=== PATIENT | female | born 1940 | race Caucasian/White ===

== ENCOUNTER 2018-08-30 19:13 | Emergency (ER) | payer MEDICARE, OTHER ==
[~2018-08-30] VITALS: Ht 154.9 cm; Wt 55.0 kg
[2018-08-30 21:57] LABS: BASOPHILS % (AUTO) 2.1 % (0.0-2.0); EOSINOPHILS % (AUTO) 2.8 % (1.0-6.0); HEMATOCRIT 26.5 % (36-46); HEMOGLOBIN 8.5 g/dL (12.0-16.0); LYMPHOCYTES # (AUTO) 1.4 K/uL (1.0-4.8); LYMPHOCYTES % (AUTO) 14.5 % (22.0-44.0); MEAN CORPUSCULAR HEMOGLOBIN 24.4 pg (26.0-34.0); MEAN CORPUSCULAR HGB CONC 32.1 G/dL (31.0-37.0); MEAN CORPUSCULAR VOLUME 76 fL (80-100); MONOCYTES # (AUTO) 0.8 K/uL (0.1-1.0); MONOCYTES % (AUTO) 8.3 % (2.0-9.0); NEUTROPHILS # (AUTO) 7.2 K/uL (1.8-7.7); NEUTROPHILS % (AUTO) 72.3 % (40.0-70.0); PLATELET COUNT (AUTO) 363 K/uL (150-450); RED BLOOD CELL COUNT(AUTO) 3.48 MIL/uL (4.00-5.20); RED CELL DISTRIBUTION WIDTH 19.1 % (11.5-14.5)
[2018-08-30 22:08] LABS: ALANINE AMINOTRANSFERASE 21 U/L (12-78); ALBUMIN 3.8 g/dL (3.4-5.0); ALKALINE PHOSPHATASE 73 U/L (46-116); ANION GAP 10 mmol/L (8-16); ASPARTATE AMINOTRANSFERASE 21 U/L (15-37); BILIRUBIN,TOTAL 0.2 mg/dL (0.1-1.0); CARBON DIOXIDE 26 mmol/L (22-29); CHLORIDE 103 mmol/L (98-107); CREATININE 1.02 mg/dL (0.60-1.30); GLUCOSE,RANDOM 111 mg/dL (70-110); POTASSIUM 4.2 mmol/L (3.5-5.1); SODIUM SERUM 139 mmol/L (136-145); TOTAL PROTEIN, SERUM 7.8 g/dL (6.4-8.2)
[2018-08-30 22:31] LABS: AMPHET/METH SCREEN,URINE NEGATIVE (NEGATIVE); BARBITURATE SCREEN, URINE NEGATIVE (NEGATIVE); BENZODIAZEPINES SCREEN,URINE POSITIVE (NEGATIVE); CANNABINOID SCREEN,URINE NEGATIVE (NEGATIVE); COCAINE SCREEN,URINE NEGATIVE (NEGATIVE); METHADONE SCREEN, URINE NEGATIVE (NEGATIVE); OPIATE SCREEN,URINE NEGATIVE (NEGATIVE)
[2018-08-30 22:33] LABS: PHENCYCLIDINE SCREEN,URINE NEGATIVE (NEGATIVE)
[2018-08-30 22:35] LABS: GLOMERULAR FILTR. RATE CALC 55 mL/min (>60); UREA NITROGEN, BLOOD 40 mg/dL (7-18)
[2018-08-31 00:14] VITALS: BP 155/78
== END 2018-08-31 00:16 | disposition home or self-care (01) ==
LOC: EMS 19:14
DX: F32.9 Major depressive disorder, single episode, unspecified (principal); E78.00 Pure hypercholesterolemia, unspecified; Z88.0 Allergy status to penicillin
CPT/HCPCS: 36415; 80053; 80307; 85025; 99285; G0480

== ENCOUNTER 2019-04-23 21:30 | Emergency (ER) | payer MEDICARE, OTHER ==
[~2019-04-23] VITALS: Ht 160 cm; Wt 54.5 kg
[2019-04-23] MEDS ORDERED: [UNRECOGNIZED DRUG - CODE] ITH (22:02)
[2019-04-23] MEDS ORDERED: ENTE0.5T4 PO (22:02)
[2019-04-23] MEDS ORDERED: [UNRECOGNIZED DRUG - CODE] PO (22:02)
[2019-04-23] MEDS ORDERED: LOSA25TA2 PO (22:02)
[2019-04-23] MEDS ORDERED: AMLO-387 PO (22:02)
[2019-04-23] MEDS ORDERED: LIDOCAINE 1% 10 ML VIAL INJ ONE (23:45)
[2019-04-24] MEDS ORDERED: KETOROLAC TROMETHAMINE 60 MG/2 ML VIAL IM ONE (00:30)
[2019-04-24] MEDS ORDERED: LORazepam 1 MG TABLET PO ONE (00:30)
[2019-04-24] MEDS ORDERED: MethylPREDNISolone SOD SUCC 125 MG/2 ML VIAL IM ONE (04:00)
[2019-04-24 04:19] VITALS: BP 121/65
== END 2019-04-24 04:25 | disposition home or self-care (01) ==
LOC: EMS 21:31
DX: M62.838 Other muscle spasm (principal); M54.2 Cervicalgia; I10 Essential (primary) hypertension; E78.00 Pure hypercholesterolemia, unspecified; Z88.0 Allergy status to penicillin
CPT/HCPCS: 20550; 96372; 99284; J1885; J2930; J3490

== ENCOUNTER 2019-08-17 20:34 | Emergency (ER) | payer MEDICARE, OTHER ==
[~2019-08-17] VITALS: Ht 154.9 cm; Wt 50.0 kg
[~2019-08-17 20:34] MED LIST: AMLO-387 PO; ENTE0.5T4 PO; LOSA25TA2 PO; [UNRECOGNIZED DRUG - CODE] ITH; [UNRECOGNIZED DRUG - CODE] PO
[2019-08-17 21:06] VITALS: BP 161/100
[2019-08-17] MEDS ORDERED: NAPROXEN 250 MG TABLET PO ONE (23:30)
[2019-08-17] MEDS ORDERED: TiZANidine HCL 4 MG TABLET PO ONE (23:30)
== END 2019-08-18 00:36 | disposition home or self-care (01) ==
LOC: EMS 20:35
DX: M54.2 Cervicalgia (principal); M62.838 Other muscle spasm; I10 Essential (primary) hypertension; E78.00 Pure hypercholesterolemia, unspecified; Z88.0 Allergy status to penicillin

== ENCOUNTER 2019-08-18 07:20 | Emergency (ER) | payer MEDICARE, OTHER ==
[~2019-08-18] VITALS: Ht 154.9 cm; Wt 50.0 kg
[2019-08-18] MEDS ORDERED: IBUPROFEN 600 MG TABLET PO ONE (08:30)
[2019-08-18 08:32] VITALS: BP 178/80
== END 2019-08-18 08:30 | disposition home or self-care (01) ==
LOC: EMS 07:22
DX: M62.838 Other muscle spasm (principal); F41.9 Anxiety disorder, unspecified; E78.00 Pure hypercholesterolemia, unspecified; I10 Essential (primary) hypertension; Z79.899 Other long term (current) drug therapy; Z88.0 Allergy status to penicillin

== ENCOUNTER 2020-11-07 11:34 | Inpatient (IN) | payer MEDICARE, MEDICAID ==
[~2020-11-07] VITALS: Ht 152.4 cm; Wt 53.4 kg
[~2020-11-07 11:34] MED LIST changes: -[UNRECOGNIZED DRUG - CODE] ITH
[2020-11-07] MEDS ORDERED: ACETAMINOPHEN 500 MG TABLET PO ONE (13:15)
[2020-11-07] MEDS ORDERED: ZOLPIDEM TARTRATE 10 MG TABLET PO PRN (15:30)
[2020-11-07] MEDS ORDERED: HALOPERIDOL 5 MG TABLET PO PRN (15:30)
[2020-11-07] MEDS ORDERED: LORazepam 2 MG TABLET PO PRN (15:30)
[2020-11-07 19:14] LABS: COVID AG,FIA SOURCE NASOPHARYNGEAL
[2020-11-08] MEDS ORDERED: PNEUMOCOCCAL VACCINE POLYVALENT 0.5 ML VIAL [PPSV23] IM. ONE (02:30)
[2020-11-08 04:28] VITALS: BP 103/65
[2020-11-08 07:50] LABS: CHOL/HDL RATIO 3.7 (3.9-5.7)
[2020-11-08 08:11] VITALS: BP 118/60
[2020-11-08] MEDS ORDERED: ALBUTEROL SULFATE HFA 90 MCG/PUFF 8 GM INHALER IH PRN (08:30)
[2020-11-08] MEDS ORDERED: MAGNESIUM HYDROXIDE SUSPENSION 30 ML UDCUP PO PRN (08:30)
[2020-11-08] MEDS ORDERED: LOPERAMIDE HCL 2 MG CAPSULE PO PRN (08:30)
[2020-11-08] MEDS ORDERED: PETROLATUM,WHITE 28 GM JELLY TP PRN (08:30)
[2020-11-08] MEDS ORDERED: DOCUSATE SODIUM 100 MG CAPSULE PO PRN (08:30)
[2020-11-08] MEDS ORDERED: CloNIDine HCL 0.1 MG TABLET PO PRN (08:30)
[2020-11-08] MEDS ORDERED: ONDANSETRON HCL 4 MG TABLET PO PRN (08:30)
[2020-11-08] MEDS ORDERED: NICOTINE 14 MG/24 HOUR PATCH TD PRN (08:30)
[2020-11-08] MEDS ORDERED: GuaiFENesin/D-METHORPHAN [SUGAR-FREE] 200-20MG/10 ML SYRUP UDCUP PO PRN (08:30)
[2020-11-08] MEDS ORDERED: MAG HYDROX/AL HYDROX/SIMETH ES 30 ML SUSPENSION UDCUP PO PRN (08:30)
[2020-11-08] MEDS: LOSARTAN POTASSIUM 25 MG TABLET PO SCH ×2 (08:48→17:14)
[2020-11-08] MEDS: AmLODIPine BESYLATE 5 MG TABLET PO SCH (08:48)
[2020-11-08] MEDS: ATORVASTATIN CALCIUM 10 MG TABLET PO SCH (08:48)
[2020-11-08] MEDS: CALAMINE/ZINC OXIDE 177 ML LOTION TP SCH ×2 (08:49→17:14)
[2020-11-08 09:00] VITALS: BP 118/60
[2020-11-08 16:05] VITALS: BP 142/83
[2020-11-08] MEDS: ACETAMINOPHEN 325 MG TABLET PO PRN (17:31)
[2020-11-08] MEDS: IBUPROFEN 400 MG TABLET PO PRN (19:00)
[2020-11-08] MEDS: RisperiDONE 2 MG TABLET PO SCH (20:08)
[2020-11-09 04:17] VITALS: BP 128/60
[2020-11-09] MEDS: ENTECAVIR 0.5 MG PO SCH (06:02)
[2020-11-09 08:05] VITALS: BP 113/53
[2020-11-09] MEDS: MULTIVITAMINS WITH MINERALS, THERAPEUTIC TABLET PO SCH (09:17)
[2020-11-09] MEDS: CALAMINE/ZINC OXIDE 177 ML LOTION TP SCH ×2 (09:17→17:00)
[2020-11-09] MEDS: ATORVASTATIN CALCIUM 10 MG TABLET PO SCH (09:21)
[2020-11-09 10:25] VITALS: BP 148/68
[2020-11-09] MEDS: LOSARTAN POTASSIUM 25 MG TABLET PO SCH ×2 (10:48→17:00)
[2020-11-09] MEDS: AmLODIPine BESYLATE 5 MG TABLET PO SCH (10:48)
[2020-11-09 12:15] VITALS: BP 133/68
[2020-11-09] MEDS: RisperiDONE 2 MG TABLET PO SCH (21:00)
[2020-11-10 05:00] VITALS: BP 156/73
[2020-11-10] MEDS: ENTECAVIR 0.5 MG PO SCH (06:26)
[2020-11-10 07:00] VITALS: BP 158/86
[2020-11-10 08:06] VITALS: BP 149/93
[2020-11-10] MEDS: AmLODIPine BESYLATE 5 MG TABLET PO SCH (08:08)
[2020-11-10] MEDS: ATORVASTATIN CALCIUM 10 MG TABLET PO SCH (08:08)
[2020-11-10] MEDS: LOSARTAN POTASSIUM 25 MG TABLET PO SCH ×2 (08:08→17:13)
[2020-11-10] MEDS: MULTIVITAMINS WITH MINERALS, THERAPEUTIC TABLET PO SCH (08:09)
[2020-11-10] MEDS: CALAMINE/ZINC OXIDE 177 ML LOTION TP SCH ×2 (08:09→16:27)
[2020-11-10 16:08] VITALS: BP 126/53
[2020-11-11 00:08] VITALS: BP 130/64
[2020-11-11] MEDS: ENTECAVIR 0.5 MG PO SCH (06:22)
[2020-11-11 07:00] VITALS: BP 124/61
[2020-11-11] MEDS: IBUPROFEN 400 MG TABLET PO PRN (07:10)
[2020-11-11 08:04] VITALS: BP 127/61
[2020-11-11] MEDS: MULTIVITAMINS WITH MINERALS, THERAPEUTIC TABLET PO SCH (08:24)
[2020-11-11] MEDS: CALAMINE/ZINC OXIDE 177 ML LOTION TP SCH ×2 (08:25→16:25)
[2020-11-11] MEDS: ATORVASTATIN CALCIUM 10 MG TABLET PO SCH (08:25)
[2020-11-11] MEDS: LOSARTAN POTASSIUM 25 MG TABLET PO SCH ×2 (08:25→17:00)
[2020-11-11] MEDS: AmLODIPine BESYLATE 5 MG TABLET PO SCH (08:25)
[2020-11-11] MEDS ORDERED: RisperiDONE 1 MG TABLET PO SCH (09:00)
[2020-11-11] MEDS: ACETAMINOPHEN 325 MG TABLET PO PRN (13:53)
[2020-11-11 17:26] VITALS: BP 97/60
[2020-11-11 20:28] VITALS: BP 102/61
[2020-11-11] MEDS: RisperiDONE 2 MG TABLET PO SCH (20:30)
[2020-11-12] VITALS: BP 104/52
[2020-11-12 02:14] VITALS: BP 114/62
[2020-11-12] MEDS: IBUPROFEN 400 MG TABLET PO PRN (02:22)
[2020-11-12] MEDS: ENTECAVIR 0.5 MG PO SCH (06:01)
[2020-11-12 07:42] LABS: COVID AG,FIA SOURCE NASOPHARYNGEAL
[2020-11-12 08:14] VITALS: BP 113/67
[2020-11-12] MEDS: LOSARTAN POTASSIUM 25 MG TABLET PO SCH ×2 (08:33→15:59)
[2020-11-12] MEDS: RisperiDONE 2 MG TABLET PO SCH ×2 (08:33→15:59)
[2020-11-12] MEDS: ATORVASTATIN CALCIUM 10 MG TABLET PO SCH (08:34)
[2020-11-12] MEDS: AmLODIPine BESYLATE 5 MG TABLET PO SCH (08:34)
[2020-11-12] MEDS: MULTIVITAMINS WITH MINERALS, THERAPEUTIC TABLET PO SCH (08:34)
[2020-11-12] MEDS: CALAMINE/ZINC OXIDE 177 ML LOTION TP SCH ×2 (09:24→16:08)
[2020-11-12 16:06] VITALS: BP 110/70
[2020-11-13] VITALS: BP 118/52
[2020-11-13 06:20] VITALS: BP 115/63
[2020-11-13] MEDS: ACETAMINOPHEN 325 MG TABLET PO PRN (06:23)
[2020-11-13] MEDS: ENTECAVIR 0.5 MG PO SCH (07:02)
[2020-11-13 08:02] VITALS: BP 109/66
[2020-11-13] MEDS: ATORVASTATIN CALCIUM 10 MG TABLET PO SCH (08:05)
[2020-11-13] MEDS: RisperiDONE 2 MG TABLET PO SCH ×2 (08:05→16:31)
[2020-11-13] MEDS: MULTIVITAMINS WITH MINERALS, THERAPEUTIC TABLET PO SCH (08:05)
[2020-11-13] MEDS: LOSARTAN POTASSIUM 25 MG TABLET PO SCH ×2 (08:06→16:31)
[2020-11-13] MEDS: CALAMINE/ZINC OXIDE 177 ML LOTION TP SCH ×2 (08:06→16:31)
[2020-11-13] MEDS: AmLODIPine BESYLATE 5 MG TABLET PO SCH (09:37)
[2020-11-13 16:13] VITALS: BP 130/70
[2020-11-14 00:02] VITALS: BP 122/59
[2020-11-14] MEDS: ENTECAVIR 0.5 MG PO SCH (06:49)
[2020-11-14] MEDS: ACETAMINOPHEN 325 MG TABLET PO PRN (06:53)
[2020-11-14 07:55] LABS: BASOPHILS % (AUTO) 0.6 % (0.0-2.0); EOSINOPHILS % (AUTO) 6.5 % (1.0-6.0); HEMOGLOBIN 10.7 g/dL (12.0-16.0); LYMPHOCYTES % (AUTO) 12.3 % (22.0-44.0); MEAN CORPUSCULAR HEMOGLOBIN 28.4 pg (26.0-34.0); MEAN CORPUSCULAR HGB CONC 32.4 G/dL (31.0-37.0); MEAN CORPUSCULAR VOLUME 88 fL (80-100); MONOCYTES # (AUTO) 0.7 K/uL (0.1-1.0); MONOCYTES % (AUTO) 8.8 % (2.0-9.0); NEUTROPHILS # (AUTO) 5.6 K/uL (1.8-7.7); NEUTROPHILS % (AUTO) 71.8 % (40.0-70.0); PLATELET COUNT (AUTO) 226 K/uL (150-450); RED BLOOD CELL COUNT(AUTO) 3.76 MIL/uL (4.00-5.20); RED CELL DISTRIBUTION WIDTH 14.7 % (11.5-14.5)
[2020-11-14 07:59] LABS: HEMOGLOBIN A1C 6.3 % (3.8-5.6)
[2020-11-14 08:09] VITALS: BP 133/60
[2020-11-14 08:13] LABS: ALBUMIN 3.4 g/dL (3.4-5.0); BILIRUBIN,TOTAL 0.3 mg/dL (0.1-1.0); CREATININE 0.93 mg/dL (0.60-1.30); FREE T4 (FREE THYROXINE) 1.1 ng/dL (0.76-1.46); POTASSIUM 4.7 mmol/L (3.5-5.1); THYROID STIMULATING HORMONE 0.26 uIU/mL (0.36-3.74); TOTAL PROTEIN, SERUM 7.2 g/dL (6.4-8.2)
[2020-11-14] MEDS: ATORVASTATIN CALCIUM 10 MG TABLET PO SCH (08:14)
[2020-11-14] MEDS: MULTIVITAMINS WITH MINERALS, THERAPEUTIC TABLET PO SCH (08:14)
[2020-11-14] MEDS: LOSARTAN POTASSIUM 25 MG TABLET PO SCH ×2 (08:14→16:05)
[2020-11-14] MEDS: RisperiDONE 2 MG TABLET PO SCH ×2 (08:14→16:05)
[2020-11-14] MEDS: CALAMINE/ZINC OXIDE 177 ML LOTION TP SCH ×2 (09:10→16:05)
[2020-11-14] MEDS: AmLODIPine BESYLATE 5 MG TABLET PO SCH (09:10)
[2020-11-14 16:20] VITALS: BP 110/58
[2020-11-14] MEDS: IBUPROFEN 400 MG TABLET PO PRN (19:40)
[2020-11-15 05:26] VITALS: BP 116/62
[2020-11-15] MEDS: ENTECAVIR 0.5 MG PO SCH (06:03)
[2020-11-15] MEDS: IBUPROFEN 400 MG TABLET PO PRN (06:40)
[2020-11-15] MEDS: LOSARTAN POTASSIUM 25 MG TABLET PO SCH ×2 (09:21→16:30)
[2020-11-15] MEDS: RisperiDONE 2 MG TABLET PO SCH ×2 (09:22→16:30)
[2020-11-15] MEDS: AmLODIPine BESYLATE 5 MG TABLET PO SCH (09:22)
[2020-11-15] MEDS: MULTIVITAMINS WITH MINERALS, THERAPEUTIC TABLET PO SCH (09:22)
[2020-11-15] MEDS: CALAMINE/ZINC OXIDE 177 ML LOTION TP SCH ×2 (09:22→16:34)
[2020-11-15] MEDS: ATORVASTATIN CALCIUM 10 MG TABLET PO SCH (09:22)
[2020-11-15 09:32] VITALS: BP 133/66
[2020-11-15] MEDS: SERTRALINE HCL 50 MG TABLET PO SCH (13:15)
[2020-11-15] MEDS: ACETAMINOPHEN 325 MG TABLET PO PRN (13:16)
[2020-11-15 16:25] VITALS: BP 131/60
[2020-11-16 06:12] VITALS: BP 122/59
[2020-11-16] MEDS: ENTECAVIR 0.5 MG PO SCH (06:52)
[2020-11-16 08:12] VITALS: BP 127/57
[2020-11-16] MEDS: ATORVASTATIN CALCIUM 10 MG TABLET PO SCH (08:24)
[2020-11-16] MEDS: SERTRALINE HCL 50 MG TABLET PO SCH (08:24)
[2020-11-16] MEDS: MULTIVITAMINS WITH MINERALS, THERAPEUTIC TABLET PO SCH (08:24)
[2020-11-16] MEDS: AmLODIPine BESYLATE 5 MG TABLET PO SCH (08:25)
[2020-11-16] MEDS: LOSARTAN POTASSIUM 25 MG TABLET PO SCH ×2 (08:26→16:30)
[2020-11-16] MEDS: CALAMINE/ZINC OXIDE 177 ML LOTION TP SCH ×2 (08:27→16:35)
[2020-11-16] MEDS: RisperiDONE 2 MG TABLET PO SCH ×2 (08:27→16:30)
[2020-11-16] MEDS: IBUPROFEN 400 MG TABLET PO PRN (14:02)
[2020-11-16 16:01] VITALS: BP 110/64
[2020-11-16] MEDS: ACETAMINOPHEN 325 MG TABLET PO PRN (16:33)
[2020-11-17 02:50] VITALS: BP 153/67
[2020-11-17] MEDS: IBUPROFEN 400 MG TABLET PO PRN ×2 (02:57→12:00)
[2020-11-17] MEDS: ENTECAVIR 0.5 MG PO SCH (06:06)
[2020-11-17] MEDS: LOSARTAN POTASSIUM 25 MG TABLET PO SCH ×2 (08:01→16:32)
[2020-11-17] MEDS: SERTRALINE HCL 50 MG TABLET PO SCH (08:01)
[2020-11-17] MEDS: MULTIVITAMINS WITH MINERALS, THERAPEUTIC TABLET PO SCH (08:01)
[2020-11-17] MEDS: ATORVASTATIN CALCIUM 10 MG TABLET PO SCH (08:01)
[2020-11-17] MEDS: RisperiDONE 2 MG TABLET PO SCH ×2 (08:01→16:32)
[2020-11-17] MEDS: CALAMINE/ZINC OXIDE 177 ML LOTION TP SCH ×2 (08:06→16:32)
[2020-11-17] MEDS: AmLODIPine BESYLATE 5 MG TABLET PO SCH (08:26)
[2020-11-17 08:31] VITALS: BP 132/64
[2020-11-17] MEDS: ACETAMINOPHEN 325 MG TABLET PO PRN (16:08)
[2020-11-17 16:12] VITALS: BP 126/61
[2020-11-18 05:39] VITALS: BP 122/73
[2020-11-18] MEDS: ENTECAVIR 0.5 MG PO SCH (06:07)
[2020-11-18] MEDS: MULTIVITAMINS WITH MINERALS, THERAPEUTIC TABLET PO SCH (08:14)
[2020-11-18] MEDS: AmLODIPine BESYLATE 5 MG TABLET PO SCH (08:14)
[2020-11-18] MEDS: RisperiDONE 2 MG TABLET PO SCH ×2 (08:14→17:26)
[2020-11-18] MEDS: SERTRALINE HCL 50 MG TABLET PO SCH (08:14)
[2020-11-18] MEDS: LOSARTAN POTASSIUM 25 MG TABLET PO SCH ×2 (08:14→17:27)
[2020-11-18] MEDS: ATORVASTATIN CALCIUM 10 MG TABLET PO SCH (08:14)
[2020-11-18] MEDS: CALAMINE/ZINC OXIDE 177 ML LOTION TP SCH ×2 (08:15→16:28)
[2020-11-18 08:20] VITALS: BP 143/61
[2020-11-18 09:30] VITALS: BP 123/65
[2020-11-18 16:13] VITALS: BP 144/56
[2020-11-19 01:19] VITALS: BP 127/62
[2020-11-19] MEDS: ENTECAVIR 0.5 MG PO SCH (06:11)
[2020-11-19 07:34] LABS: COVID AG,FIA SOURCE NASOPHARYNGEAL
[2020-11-19 08:31] VITALS: BP 115/63
[2020-11-19] MEDS: LOSARTAN POTASSIUM 25 MG TABLET PO SCH ×2 (09:02→16:24)
[2020-11-19] MEDS: CALAMINE/ZINC OXIDE 177 ML LOTION TP SCH ×2 (09:03→16:24)
[2020-11-19] MEDS: AmLODIPine BESYLATE 5 MG TABLET PO SCH (09:03)
[2020-11-19] MEDS: ATORVASTATIN CALCIUM 10 MG TABLET PO SCH (09:03)
[2020-11-19] MEDS: SERTRALINE HCL 50 MG TABLET PO SCH (09:03)
[2020-11-19] MEDS: MULTIVITAMINS WITH MINERALS, THERAPEUTIC TABLET PO SCH (09:03)
[2020-11-19] MEDS: RisperiDONE 2 MG TABLET PO SCH ×2 (09:03→16:23)
[2020-11-19] MEDS: IBUPROFEN 400 MG TABLET PO PRN (11:32)
[2020-11-19] MEDS: ACETAMINOPHEN 325 MG TABLET PO PRN (15:43)
[2020-11-19 16:06] VITALS: BP 113/66
[2020-11-19] MEDS ORDERED: RISP2TAB45 PO (19:53)
[2020-11-19] MEDS ORDERED: SERT-158 PO (19:54)
[2020-11-19] MEDS ORDERED: LOSA25TA21 PO (19:55)
[2020-11-19] MEDS ORDERED: ATOR10TA84 PO (19:55)
[2020-11-19] MEDS ORDERED: AMLO-257 PO (19:55)
== END 2020-11-19 17:00 | disposition home or self-care (01) | DRG 885 ==
LOC: EMS 11:48 → B2X 15:30 → B3A 15:30 → UNDOADMIN 15:30 → B2X 11-17 13:39
PROVIDERS: ADMIT Psychiatry & Neurology Child & Adolescent Psychiatry; ATTEND Psychiatry & Neurology Child & Adolescent Psychiatry
DX: F20.0 Paranoid schizophrenia (principal); B18.1 Chronic viral hepatitis B without delta-agent; E78.00 Pure hypercholesterolemia, unspecified; Z20.822 Contact with and (suspected) exposure to COVID-19; E78.5 Hyperlipidemia, unspecified; F41.9 Anxiety disorder, unspecified; I10 Essential (primary) hypertension; Z79.899 Other long term (current) drug therapy; Z91.19 Patient's noncompliance with other medical treatment and regimen; Z28.21 Immunization not carried out because of patient refusal; Z88.0 Allergy status to penicillin
CPT/HCPCS: 80053; 80061; 83036; 84439; 84443; 85025; 87426; 99285; A9575